=== PATIENT | male | born 1950 | race Caucasian/White ===

== ENCOUNTER 2016-09-07 18:18 | Inpatient (IN) | payer MEDICARE, BC ==
[~2016-09-07] VITALS: Ht 182.9 cm; Wt 126.6 kg
[2016-09-07 18:52] LABS: HEMOGLOBIN 11.6 gm/dl (14.0-17.5); RED BLOOD COUNT 4.04 M/UL (4.20-5.50); WHITE BLOOD COUNT 14.3 K/UL (4.5-11.0)
[2016-09-07] MEDS ORDERED: HYDROCHLOROTHIA25 MG PO (20:55)
[2016-09-07] MEDS ORDERED: CALCITRIOL0.25 MCG PO (20:56)
[2016-09-07] MEDS ORDERED: COREG 25MG TAB25 MG PO (20:57)
[2016-09-07] MEDS ORDERED: LIPITOR TAB 2020 MG PO (20:57)
[2016-09-07] MEDS ORDERED: RAMIPRIL10 MG PO (20:58)
[2016-09-07] MEDS ORDERED: NORVASC 5 MG TAB5 MG PO (20:58)
[2016-09-07] MEDS ORDERED: LEVEMIR FL100 UNIT/1 SQ (21:01)
[2016-09-07 21:25] LABS: HEMOGLOBIN 11.5 gm/dl (14.0-17.5); RED BLOOD COUNT 4.03 M/UL (4.20-5.50); WHITE BLOOD COUNT 14.9 K/UL (4.5-11.0)
[2016-09-08 05:17] LABS: RED BLOOD COUNT 3.87 M/UL (4.20-5.50)
[2016-09-08 05:21] LABS: WHITE BLOOD COUNT 10.5 K/UL (4.5-11.0)
[2016-09-08 09:18] LABS: RED BLOOD COUNT 3.82 M/UL (4.20-5.50); WHITE BLOOD COUNT 9.1 K/UL (4.5-11.0)
[2016-09-09 03:28] LABS: HEMOGLOBIN 9.7 gm/dl (14.0-17.5); RED BLOOD COUNT 3.44 M/UL (4.20-5.50); WHITE BLOOD COUNT 7.1 K/UL (4.5-11.0)
[2016-09-10 03:36] LABS: HEMOGLOBIN 9.4 gm/dl (14.0-17.5); RED BLOOD COUNT 3.3 M/UL (4.20-5.50); WHITE BLOOD COUNT 8.2 K/UL (4.5-11.0)
[2016-09-10 23:54] LABS: ACINETOBACTER BAUMANNII Not Detected (Negative); CANDIDA ALBICANS Not Detected (Negative); CANDIDA KRUSEI Not Detected (Negative); CANDIDA TROPICALIS Not Detected (Negative); ENTEROCOCCUS Not Detected (Negative); ESCHERICHIA COLI Not Detected (Negative); HAEMOPHILUS INFLUENZAE Not Detected (Negative); KLEBSIELLA OXYTOCA Not Detected (Negative); KLEBSIELLA PNEUMONIAE Not Detected (Negative); KPC-CARBAPENEM-RESISTANCE GENE Not Detected (Negative); PROTEUS Not Detected (Negative); PSEUDOMONAS AERUGINOSA Not Detected (Negative); SERRATIA MARCESANS Not Detected (Negative); STAPHYLOCOCCUS AUREUS Not Detected (Negative); STREP AGALACTIAE (GROUP B) Not Detected (Negative); STREP PYOGENES (GROUP A) Not Detected (Negative); STREPTOCOCCUS Not Detected (Negative); mecA (METHICILLIN RESIST GENE Not Detected (Negative); vanA/B (VANCOMYCIN RESIST GENE Not Detected (Negative)
[2016-09-10 23:55] LABS: STAPHYLOCOCCUS DETECTED (Negative)
[2016-09-11 05:46] LABS: HEMOGLOBIN 9.2 gm/dl (14.0-17.5); RED BLOOD COUNT 3.24 M/UL (4.20-5.50); WHITE BLOOD COUNT 6.8 K/UL (4.5-11.0)
== END 2016-09-11 23:15 | disposition expired | DRG 207 ==
LOC: ER1 18:18 → CCU 18:19 → ZEROF 18:19 → CCU 20:55
PROVIDERS: Emergency Medicine; Internal Medicine Critical Care Medicine; Internal Medicine Nephrology; ADMIT Internal Medicine
PROC: 5A1955Z Respiratory Ventilation, Greater than 96 Consecutive Hours (ICD-10-PCS; principal; 2016-09-07)
PROC: 02HV33Z Insertion of Infusion Device into Superior Vena Cava, Percutaneous Approach (ICD-10-PCS; 2016-09-07)
PROC: B548ZZA Ultrasonography of Superior Vena Cava, Guidance (ICD-10-PCS; 2016-09-07)
PROC: 03HC33Z Insertion of Infusion Device into Left Radial Artery, Percutaneous Approach (ICD-10-PCS; 2016-09-07)
DX: J96.00 Acute respiratory failure, unspecified whether with hypoxia or hypercapnia (principal); N17.0 Acute kidney failure with tubular necrosis; E13.10 Other specified diabetes mellitus with ketoacidosis without coma; G93.6 Cerebral edema; G93.1 Anoxic brain damage, not elsewhere classified; R57.9 Shock, unspecified; I47.2 Ventricular tachycardia; J98.11 Atelectasis; Z99.11 Dependence on respirator [ventilator] status; R40.2432 Glasgow coma scale score 3-8, at arrival to emergency department; R56.9 Unspecified convulsions; E87.5 Hyperkalemia; E87.6 Hypokalemia; I12.9 Hypertensive chronic kidney disease with stage 1 through stage 4 chronic kidney disease, or unspecified chronic kidney disease; E11.22 Type 2 diabetes mellitus with diabetic chronic kidney disease; N18.3 Chronic kidney disease, stage 3 (moderate); I46.9 Cardiac arrest, cause unspecified; E87.70 Fluid overload, unspecified; D64.9 Anemia, unspecified; R00.1 Bradycardia, unspecified; R68.0 Hypothermia, not associated with low environmental temperature; S00.83XA Contusion of other part of head, initial encounter; W19.XXXA Unspecified fall, initial encounter; Y92.009 Unspecified place in unspecified non-institutional (private) residence as the place of occurrence of the external cause; E83.51 Hypocalcemia; J32.4 Chronic pansinusitis; E66.3 Overweight; Z68.30 Body mass index [BMI] 30.0-30.9, adult; Z79.4 Long term (current) use of insulin; Z79.899 Other long term (current) drug therapy; Z88.6 Allergy status to analgesic agent; Z91.09 Other allergy status, other than to drugs and biological substances; Z87.442 Personal history of urinary calculi; Z98.890 Other specified postprocedural states
CPT/HCPCS: ECHO; 31500; 36415; 36600; 70450; 71010; 80048; 80053; 81001; 82009; 82436; 82533; 82550; 82553; 82570; 82803; 82962; 83605; 83690; 83735; 83970; 84100; 84133; 84156; 84300; 84443; 84484; 85025; 85027; 85610; 85730; 86850; 86900; 86901; 87040; 87070; 87077; 87086; 87150; 87186; 87205; 93005; 93306; 94002; 94003; 95824; 96374; 99285; A4628; C9113; J0171; J0461; J1250; J1644; J1815; J1953; J2370; J2543; J3370; J3480; J7030; J7040; J7050; J7070; J7120